=== PATIENT | female | born 1940 | race Caucasian/White ===

== ENCOUNTER 2016-10-09 09:24 | Day surgery (SDC) | payer MEDICARE, OTHER ==
[~2016-10-09] VITALS: Ht 154.9 cm; Wt 68.2 kg
--- NOTE | 2016-10-09 07:27 | PCM.HPANE ---
Patient Data Surgeon Admitting Provider: Attending Provider:Demetri Harrell MD Primary Care Physician:Becky Pettit MD Other Provider:[facility] Reason for Visit Barretts Esophagus Ht/WT & BMI Body Mass Index Allergies Coded Allergies: erythromycin ethylsuccinate (Verified Allergy, Mild, Rash, 10/09/16) metoclopramide (Verified Allergy, Mild, Nausea,Vomiting, 10/09/16) pollen extracts (Verified Allergy, Mild, Rash,Itching,, 10/09/16) Cephalexin Monohydrate (Verified Allergy, Unknown, 10/09/16) Cephalosporins (Unverified Allergy, Unknown, 10/09/16) Contrast Media (Verified Allergy, Unknown, RASH, 10/09/16) Sulfa (Sulfonamide Antibiotics) (Verified Allergy, Unknown, 10/09/16) ciprofloxacin (Verified Allergy, Unknown, 10/09/16) etodolac (Verified Allergy, Unknown, 10/09/16) fosinopril (Verified Allergy, Unknown, 10/09/16) isosorbide (Verified Allergy, Unknown, 10/09/16) sulfamethoxazole (Verified Allergy, Unknown, 10/09/16) trimethoprim (Verified Allergy, Unknown, 10/09/16) Past Anesthesia History Anesthesia History: Denies:: Anesthesia Reactions, Difficult Intubation, Fam Anesthesia Reaction, Fam Malignant Hypertherm, Malignant Hyperthermia Diabetes History Hx Diabetes?: Yes MRSA MRSA: No Medications Reported Medications Cyanocobalamin (Vitamin B12)500 Mcg Bphplc201 Mcg PO DAILY 10/07/16 Levothyroxine (Synthroid)125 Mcg Lskelz304 Mcg PO DAILY Ref 0 10/07/16 Estrogens, Conjugated (Premarin)0.3 Mg Tablet0.3 Mg PO everyotherday 30 Days Ref 0 10/07/16 Omeprazole 40 Mg Capsule.dr40 Mg PO DAILY Ref 0 10/07/16 Nitroglycerin SL 0.4 Mg Tab.subl0.4 Mg SL DIRECTED 10/07/16 Losartan Potassium 25 Mg Quoghj54 Mg PO DAILY 10/07/16 Cyclobenzaprine 10 Mg Hdhhch58 Mg PO HS PRN Spasm Ref 0 10/07/16 Cranberry Extract (Cranberry)250 Mg Popzhju099 Mg PO TID 10/07/16 Multivits-Min/FA/Lycopene/Lut (Centrum Silver Tablet)1 Each Tablet1 Each PO DAILY 10/07/16 Biotin 1 Mg Capsule1 Tab PO DAILY 10/07/16 Insulin Lispro (HumaLOG U100 Insulin Pen)100 Unit/1 Ml Insuln.pen1 Unit SUBQ DIRECTED #1 PENINJ Ref 0 07/07/14 Insulin Glargine (Lantus U100 Insulin Vial)100 Unit/Ml Vial18 Unit SUBQ QPM- INSULIN #1 VIAL Ref 0 07/07/14 Ranitidine HCl (Zantac)150 Mg/10 Ml Xzmw105 Mg PO BID 30 Days Ref 0 07/07/14 Metformin 1,000 Mg Tablet1,000 Mg PO BIDWM 30 Days Ref 0 07/07/14 Carvedilol 25 Mg Ldstfw08 Mg PO BID 30 Days Ref 0 07/07/14 Gabapentin 600 Mg Klqtox724 Mg PO DAILY 30 Days Ref 0 07/07/14 Ezetimibe (Zetia)10 Mg Sqnuec45 Mg PO DAILY 30 Days Ref 0 07/07/14 Aspirin (Aspir 81)81 Mg Tablet.dr81 Mg PO DAILY Ref 0 07/07/14 Discontinued Reported Medications Levothyroxine (Synthroid)137 Mcg Oydiad703 Mcg PO DAILY 30 Days Ref 0 07/07/14 Methocarbamol 750 Mg Gjeitb335 Mg PO QID PRN For Spasm Ref 0 07/07/14 Hydrocod/APAP-Expunged, Do Not Renew! (VICODIN 5/300-Expunged Drug, Do Not Renew )1 Each Tablet1 Each PO 06/16/12 PredniSONE-Expunged Drug, Do Not Renew! 10 Mg Tab40 Mg PO PREMED 06/16/12 [Oscal] No Conflict Clmiy933 Mg PO DAILY 06/16/12 Bimatoprost-Expunged Drug, Do Not Renew! (Lumigan 0.01%-Expunged Drug, Do Not Renew!)45 Drop/2.5 Ml Drops1 Gtt OU DAILY 06/16/12 Isosorbide [place]-Expunged Drug, Do Not Renew! 60 Mg Tab.sr.24h40 Mg PO AM 06/16/12 Vitamin B Complex 100 No.2 (B-100 Complex)100 Mg Tablet.er100 Mg PO DAILY 06/16/12 Ranolazine-Expunged Drug, Do Not Renew! (Ranexa-Expunged Drug, Do Not Renew!) 500 Mg Tber1,000 Mg PO BID 05/27/12 Mu-Vits-Min Th/Lycopene/Lutein (Centrum Silver Tablet)1 Each Tablet1 Each PO DAILY 05/27/12 [Vit D] No Conflict Check1,000 Iu PO DAILY 2 CAPSULES 05/27/12 [Calcium 2 Day] No Conflict Check 05/27/12 Acetaminophen (8 Hour)650 Mg Tablet.er650 Mg PO Q8H PRN Every 8 hours, as needed for Fever 09/16/11 Fish Oil-Expunged Drug, Do Not Renew! Cap1 Tab PO DAILY By mouth, daily 09/09/11 Ranitidine Hcl (Zantac 75)75 Mg Zbabeb19 Mg PO DAILY By mouth, daily 09/09/11 Aspirin-Expunged Drug, Do Not Renew! (Lo-Dose Aspirin-Expunged Drug, Do Not Renew!)81 Mg Tablet.dr81 Mg PO DAILY By mouth, daily 09/09/11 Gabapentin-Expunged Drug, Do Not Renew! (Neurontin-Expunged Drug, Do Not Renew!) 300 Mg Phpdhqb695-886 Mg PO HS PRN 1-2 tablets by mouth, as needed at bedtime 09/09/11 Cyclobenzaprine-Expunged Drug, Do Not Renew! (Flexeril-Expunged Drug, Do Not Renew!)10 Mg Tablet5 Mg PO DAILY By mouth, every eight hours as needed for pain 09/09/11 Levothyroxine Inactive Drug Do Not Use (Synthroid-Expunged Drug, Do Not Renew!) 112 Mcg Wnjvrl715 Mcg PO DAILY By mouth, daily 09/09/11 Estrogens Conj-Expunged Drug, Do Not Renew! (Premarin-Expunged Drug, Do Not Renew!)0.3 Mg Tablet0.3 Mg PO EVERY OTHER DAY By mouth, daily 02/01/10 Metformin-Expunged Drug, Do Not Renew! 1,000 Mg Tablet1,000 Mg PO BID By mouth, daily 02/01/10 Ezetimibe (Zetia)10 Mg Limxba29 Mg PO HS By mouth, daily 02/01/10 Nitroglycerin-Expunged Drug, Do Not Renew! (Nitroglycerin SL-Expunged Drug, Do Not Renew!)0.4 Mg Tab.subl0.4 Mg SL PRN Under the tongue, as needed for chest pain, 5 minutes apart x3, if chest pain remains then call 911 02/01/10 Carvedilol-Expunged Drug, Do Not Renew! 6.25 Mg Autixa21 Mg PO BID By mouth, twice daily 02/01/10 glyBURIDE-Expunged Drug, Do Not Renew! (Diabeta-Expunged Drug, Do Not Renew!) 2.5 Mg Tablet2.5 Mg PO DAILY By mouth, daily 02/01/10 History History of ENT Problems?: Yes HEENT History: Positive for:: Cataracts (OU extracted) Denies:: Difficult Intubation Dysphagia Sinus Problem Hx of Heart Problems?: Yes Cardiovascular History: Positive for:: Hypertension Denies:: Atrial Fibrillation Cardiac Surgery Chest Pain Congestive Heart Failure Edema Heart Murmur Irregular Heartbeat Pacemaker Thrombophlebitis Other Cardiac History: history of CABG, excellent exercise tolerance at this time Hx of Respiratory Problem?: No Respiratory History: Positive for:: Asthma Dyspnea Pneumonia (as a child) Denies:: COPD Chest Surgery Emphysema Hemoptysis Tuberculosis Hx Neurologic Problems?: No Neurological History: Positive for:: 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 Hx Musculoskeletal Problems?: No Musculoskeletal History: Denies:: Back Injury Joint Replacement Musculoskeletal Trauma Hx of Psycho/Social Problems?: No Psycho Social History: Denies:: Anxiety Bipolar Disorder Hx Depression Suicide Attempt Hx Surgeries?: Yes (right kidney, hysterectomy, cabg) Hx Any Other Health Problems?: Yes Other History: Positive for:: Cancer (Kidney R) Hospitalization Thyroid Disease Denies:: Endocrine Disease History Blood Transfusions: Denies:: Blood Transfuse Reaction Blood Transfusions Hx Diabetes: Yes Hx Alcohol Use: NoHx Substance Use: No Smoking Status: Never Smoker Have You Smoked inLast 12 mo: No Stop/Bang Risk Assessment Category Category 1A: Patient has history of documented sleep apnea, and HAS NOT received any narcotic, sedative or anesthesia administration during this stay. Category 1B: Patient has history of documented sleep apnea, and HAS received any narcotic , sedative or anesthesia administration during this stay Category 2: Patient has SUSPECTED Obstructive Sleep Apnea, and HAS received any narcotic , sedative or anesthesia administration during this stay. Category 3: Patient has SUSPECTED Obstructive Sleep Apnea and HAS NOT received narcotic, sedative or anesthesia administration during this stay. Category 4: Outpatient in Procedural Areas with known sleep apnea or who screen positive for High Risk via the STOP/BANG questionnaire. Exam Exam General Appearance: Alert, Oriented X3, Cooperative, No Acute Distress HEENT/AIRWAY: MP 2 Lungs: Clear to Auscultation, Normal Air Movement Heart: Exam Unremarkable, Regular Rate/Rhythm, No Murmurs/Rubs/Gallops Plan Impression Patient chart reviewed, patient interviewed and anesthestic plan with risks, benefits, and alternatives discussed, and informed consent obtained. Anesthetic Plan: MAC Bene/Risks/Altern/Consents: Yes HP Complete Prior to Induction: Yes Ana Ewing MD Oct 09, 2016 07:27
[~2016-10-09 09:24] MED LIST: ASPI-628 PO; BIOT1CAP3 PO; CARV25TA2 PO; CRAN250C2 PO; CYAN500 PO; CYCL10TA9 PO; ESTR0.3T2 PO; EZET10TA PO; GABA600T2 PO; INSU100I18 SUBQ; INSU100V7 SUBQ; LEVO125T2 PO; LOSA25TA21 PO; Lactated Ringer's 1,000 ML IV ONE; METF10002 PO; MULT-1073 PO; NITR0.4T6 SL; OMEP40CA36 PO; [UNRECOGNIZED DRUG - OTHER] PO
[2016-10-09] MEDS ORDERED: fentaNYL-PF 50 mCg/mL 2 mL Inj ONE (09:25)
[2016-10-09] MEDS ORDERED: Propofol 10,000 mCg/mL 20 mL Inj ONE ×2 (09:25)
[2016-10-09 09:51] VITALS: BP 106/51; PULSE 61; RESP 15; O2SAT 97
[2016-10-09] MEDS ORDERED: Lactated Ringer's 1,000 ML IV SCH (10:37)
--- NOTE | 2016-10-09 10:37 | PCM.ANEP1 ---
Post Anesthesia Phase 1 PACU Phase 1 Assessment Vital Signs Vital Signs Date Time Temp Pulse Resp B/P Pulse Ox O2 Delivery O2 Flow Rate FiO2 10/09/16 09:51 36.2 61 15 106/51 97 Room Air Anesthetic Administered: MAC Level of Alertness: Awake, talking GLASER's with Equal Strength: Yes Pain: No Nausea or Vomiting: No Oxygen Delivery: Nasal Cannula Lungs: Clear to Auscultation, Normal Air Movement Ana Ewing MD Oct 09, 2016 10:37
[2016-10-09] MEDS ORDERED: Ondansetron 2 mg/mL 2 mL Inj IVPUSH PRN (10:40)
[2016-10-09] MEDS ORDERED: MetoCLOpramide 5 mg/mL 2 mL Inj IVPUSH PRN (10:40)
--- NOTE | 2016-10-09 10:40 | PCM.ENDEGD ---
EGD Date of Service: Oct 09, 2016 Physician Demetri Harrell MD Pre Procedure Diagnosis: Reflux and history of Mao's Post Procedure Dx & Findings: Questionable Mao's and gastritis Procedure Esophagogastroduodenoscopy PROCEDURE IN DETAIL: The patient was placed in left lateral decubitus position. Bite block was placed. Scope lubricated, placed in posterior pharynx, passed through the cricopharyngeus and esophagus, slowly advanced the entire length of the gastric pouch, pylorus was identified, scope passed through the pylorus and descending portion of duodenum, withdrawn in the antrum, retroflexed upon itself for view of fundus and cardia. Scope was then withdrawn through the oropharynx. Esophagus was entered. The Z line was around 37 cm. It was no obvious mass erosion or ulcer. Mao's esophagus was not clear. We also used narrow banding. There was subtle changes along the Z line without clear salmon- colored mucosa. I think we may be looking at intestinal metaplasia of the cardia. 4 quadrant biopsies obtained. The length at most is probably a centimeter. Stomach was visualized and the entire stomach had redness and positive rugae folds with bilious material. Biopsies obtained. Retroflexion was done. Stomach was easily inflated when deflated using air. Cardia fundus body antrum and pylorus were visualized. The scope further advanced to the distal duodenum which revealed normal villous structures with normal rugae folds. 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 4 quadrant biopsy. Bilious gastritis. Status post biopsy. Recommendation Follow up in GI clinic Repeat EGD in 3 years. We will make our final recommendation when I see her in clinic. Presedation Assessment Risks and Benefits Informed consent was obtained from the patient after all risks and benefits including but not limited to drug reaction, infection, pain, bleeding, perforation, as well as alternatives were discussed. Patient monitoring Continuous pulse oximetry, cardiac monitoring, blood pressure monitoring, IV access, and oxygen at 2L per nasal cannula. Complications There were no periprocedural complications identified. Post Procedure Plan Post Procedure Recommendations 1. Restrict activities today. 2. Resume normal activities in the morning. 3. Resume medications. 4. GERD behavioral modification: - Avoid fatty, acidic, spicy, large meals - Do not lie down after meals - Do not eat or drink anything for at least 2 1/2 hours before going to bed at night - Discontinue tobacco and alcohol - Decrease or avoid caffeine - Avoid chocolate and mints - Decrease weight - Avoid aspirin and non steroidal anti-inflammatory agents (NSAID) such as Aleve, Advil, Mobic, Naproxen, Ibuprofen, etc 5. Add proton pump inhibitor. Take 30 minutes before 1st meal of the day. 6. Patient informed of normal post procedure side effects as bloating, drowsiness, blood streaking in the stool 7. If gastric biopsy reveal H.pylori, continue with appropriate treatment 8. If small bowel biopsy reveals celiac, continue with appropriate treatment 9. Please don't hesitate to call me with any questions Demetri Harrell MD Oct 09, 2016 10:40
[2016-10-09 10:41] VITALS: BP 107/62; PULSE 70; RESP 14; O2SAT 91
[2016-10-09 10:50] VITALS: BP 106/60; PULSE 65; RESP 14; O2SAT 95
[2016-10-09 10:58] VITALS: BP 103/49; PULSE 64; RESP 16; O2SAT 97
--- NOTE | 2016-10-09 11:26 | PCM.ANEP2 ---
Post Anesthesia Evaluation ASA/CMS Post Anesthesia VS in Patient's Normal Range?: Yes Resp Stable; Airway Patent?: Yes CV Function & Hydration Stable: Yes Mental Status Recovered?: Yes Pain control Satisfactory?: Yes N/V Control Satisfactory?: Yes Ana Ewing MD Oct 09, 2016 11:26
--- NOTE | 2016-10-10 14:37 | PATH ---
SURGICAL PATHOLOGY Attending Physician:Demetri Harrell M.D. CASE STATUS: Signed Out PATIENT NAME: ANA KIM PID: [id number] : 1940 DATE COLLECTED:10/09/2016 16:12 SPECIMEN: 1: Gastric, Biopsy 2: Esophagus, Biopsy CLINICAL HISTORY: 1).GASTRIC BIOPSY 2).DISTAL ESOPHAGUS BIOPSY FINAL DIAGNOSIS: 1.GASTRIC BIOPSY: MILD CHRONIC GASTRITIS INVOLVING ANTRAL AND FUNDIC MUCOSA. Negative for evidence of Helicobacter. Negative for intestinal metaplasia. Negative for dysplasia and malignancy. 2.DISTAL ESOPHAGUS BIOPSY: FRAGMENTS OF SQUAMOUS MUCOSA AND RARE SMALL FRAGMENT OF GASTRIC CARDIA-TYPE MUCOSA, NEGATIVE FOR SPECIALIZED METAPLASIA OF ROLAND' S-TYPE ESOPHAGUS. MARKED REACTIVE CHANGES INVOLVING SQUAMOUS EPITHELIUM WITH RARE INTRAEPITHELIAL EOSINOPHILS, ALL CONSISTENT WITH CHANGES OF CHRONIC REFLUX. Negative for dysplasia and malignancy. ICD10 code K29.70 GROSS DESCRIPTION: The specimen is received in two formalin filled containers labeled with the patient's name. 1). The specimen is sublabeled "gastric" and consists of 2 portions of tissue which aggregate to 0.4 x 0.3 x 0.2 CM. The specimen is entirely submitted in cassette 1A. 2). The specimen is sublabeled "distal esophagus" and consists of 2 portions of tissue which aggregate to 0.3 x 0.2 x 0.2 CM. The specimen is entirely submitted in cassette 2A. 10/09/2016 [facility] MICRO DESCRIPTION: See diagnosis. ICD-9 CODES: CPT CODES: 1: 09526 2: 45399 Electronically Signed Out Omid Javed MD Formerly [facility] Pathology [facility] [address], [place] [address] Technical component performed at [facility], [facility] [address], [place], [address]
== END 2016-10-09 23:59 | disposition home or self-care (01) ==
LOC: END 09:24
PROVIDERS: ATTEND Internal Medicine
DX: K21.9 Gastro-esophageal reflux disease without esophagitis (principal); K29.50 Unspecified chronic gastritis without bleeding; I10 Essential (primary) hypertension; I25.10 Atherosclerotic heart disease of native coronary artery without angina pectoris; L90.0 Lichen sclerosus et atrophicus; E11.9 Type 2 diabetes mellitus without complications; J45.909 Unspecified asthma, uncomplicated; I73.9 Peripheral vascular disease, unspecified; Z79.82 Long term (current) use of aspirin; Z79.4 Long term (current) use of insulin; Z79.84 Long term (current) use of oral hypoglycemic drugs; Z86.73 Personal history of transient ischemic attack (TIA), and cerebral infarction without residual deficits; Z79.890 Hormone replacement therapy; Z95.1 Presence of aortocoronary bypass graft; Z85.528 Personal history of other malignant neoplasm of kidney
CPT/HCPCS: 43239; 88305; J2250; J3010; J7120

== ENCOUNTER 2016-10-19 16:35 | Emergency (ER) | payer MEDICARE, OTHER ==
[~2016-10-19] VITALS: Ht 152.4 cm; Wt 68.2 kg
[~2016-10-19 16:35] MED LIST changes: -Lactated Ringer's 1,000 ML IV ONE
[2016-10-19 16:42] VITALS: BP 143/47; PULSE 71; RESP 20; O2SAT 98
--- NOTE | 2016-10-19 16:55 | ED.REPORT ---
HPI- Female Date of Service Oct 19, 2016 ED Provider: Doc,Ed MD History of Present Illness: feels she has a uti. primary care is beckwith , kindrath is nurse obgyn. . Noticed today frequent urination and burning with urination and mild low back pain. Nursing Notes Stated Complaint: FREQUENT, PAINFUL URINATION Chief Complaint: Female Abdominal Pain Nursing Notes Reviewed: Yes Allergies: Coded Allergies: erythromycin ethylsuccinate (Verified Allergy, Mild, Rash, 10/09/16) metoclopramide (Verified Allergy, Mild, Nausea,Vomiting, 10/09/16) pollen extracts (Verified Allergy, Mild, Rash,Itching,, 10/09/16) Cephalexin Monohydrate (Verified Allergy, Unknown, 10/09/16) Cephalosporins (Unverified Allergy, Unknown, 10/09/16) Contrast Media (Verified Allergy, Unknown, RASH, 10/09/16) Sulfa (Sulfonamide Antibiotics) (Verified Allergy, Unknown, 10/09/16) ciprofloxacin (Verified Allergy, Unknown, 10/09/16) etodolac (Verified Allergy, Unknown, 10/09/16) fosinopril (Verified Allergy, Unknown, 10/09/16) isosorbide (Verified Allergy, Unknown, 10/09/16) sulfamethoxazole (Verified Allergy, Unknown, 10/09/16) trimethoprim (Verified Allergy, Unknown, 10/09/16) Scheduled Aspirin (Aspir 81) 81 Mg Tablet.dr 81 MG PO DAILY Biotin (Biotin) 1 Mg Capsule 1 TAB PO DAILY Carvedilol (Carvedilol) 25 Mg Tablet 25 MG PO BID Cranberry Extract (Cranberry) 250 Mg Capsule 250 MG PO TID Cyanocobalamin (Vitamin B12) 500 Mcg Tablet 500 MCG PO DAILY Estrogens, Conjugated (Premarin) 0.3 Mg Tablet 0.3 MG PO everyotherday Ezetimibe (Zetia) 10 Mg Tablet 10 MG PO DAILY Gabapentin (Gabapentin) 600 Mg Tablet 600 MG PO DAILY Insulin Glargine (Lantus U100 Insulin Vial) 100 Unit/Ml Vial 18 UNIT SUBQ QPM- INSULIN Insulin Lispro (HumaLOG U100 Insulin Pen) 100 Unit/1 Ml Insuln.pen 1 UNIT SUBQ DIRECTED Levothyroxine (Synthroid) 125 Mcg Tablet 125 MCG PO DAILY Losartan Potassium (Losartan Potassium) 25 Mg Tablet 25 MG PO DAILY Metformin (Metformin) 1,000 Mg Tablet 1,000 MG PO BIDWM Multivits-Min/FA/Lycopene/Lut (Centrum Silver Tablet) 1 Each Tablet 1 EACH PO DAILY Nitroglycerin SL (Nitroglycerin SL) 0.4 Mg Tab.subl 0.4 MG SL DIRECTED Omeprazole (Omeprazole) 40 Mg Capsule.dr 40 MG PO DAILY Ranitidine HCl (Zantac) 150 Mg/10 Ml Syrp 150 MG PO BID Scheduled PRN Cyclobenzaprine (Cyclobenzaprine) 10 Mg Tablet 10 MG PO HS PRN PRN Spasm General Time Seen by MD: 16:53 Chief Complaint Dysuria, Urinary frequency Hx Obtained From: Patient Sudden in Onset?: No Symptom Duration: Since onset Past Medical History Past Medical History Notes: PCP Dr. Humphreys Past Medical History Ulcers Cataracts Reports: Asthma, Cancer, Diabetes mellitus, GERD, Hypertension Past Surgical History Right kidney removed (cancer) Reports: CABG, Cholecystectomy, Hysterectomy Smoking History Never Smoker Social History Alcohol Use: Denies alcohol use Drug Use: Denies drug use Other Social History: Good social support Occupation lives with no work or school 10/19/2016 Ambulatory Status Independent Review of Systems Basic Review of Systems Respiratory: No shortness of breath, No cough, No wheeze Hematologic: No bleeding, No bruising Psychiatric: Normal thought content Physical Exam Initial Vital Signs Vital Signs (First) Date Time Temp Pulse Resp B/P Pulse Ox O2 Delivery O2 Flow Rate FiO2 10/19/16 16:42 36.4 71 20 143/47 98 Room Air Initial VS: Reviewed, Vital signs normal General/Constitutional: Well-developed, Well-nourished Head / Eyes: Atraumatic, Normocephalic, PERRL ENT: Mucous membranes moist, Conjunctiva normal, No scleral icterus Neck: Supple, Non-tender, Full range of motion Respiratory: Breath sounds normal, Clear to auscultation, No respiratory distress Cardiovascular: Regular rate & rhythm, Heart sounds normal, Intact distal pulses Abdomen / GI: Soft, Non-tender, No guarding, No rebound, No distention Back: No CVA tenderness Lymphatic: No lymphadenopathy Extremities: Vascular intact, Neuro intact, No swelling, No tenderness Skin: Warm, Dry, No cyanosis Neurologic: Alert, Oriented, Nonfocal Psychiatric: Mood/affect normal, Behavior normal, Normal thought content Female Genitourinary: Exam deferred General/Constitutional: Awake, Alert, No acute distress, Well appearing, Well developed, Well hydrated Respiratory / Chest: Atraumatic, Breath sounds NL, Breath sounds = bilat, No respiratory distress Cardiovascular: Heart rate NL, Regular rhythm, Heart sounds NL Interpretation & Diagnostics Lab Results Interpretation Test 10/19/16 17:00 Urine Color Yellow (YELLOW) Urine Appearance Slightly cloudy Urine pH 6.0 (5.0-8.0) Urine Specific [place] 1.015 (1.003-1.035) Urine Protein 30mg/dL (NEG,TRACE) Urine Glucose (UA) Negativemg/dL (NEGATIVE) Urine Ketones Negativemg/dL (NEGATIVE) Urine Occult Blood Large (NEGATIVE) Urine Nitrite Negative (NEGATIVE) Urine Bilirubin Negative (NEGATIVE) Urine Urobilinogen Normalmg/dL (NORMAL) Urine Leukocyte Esterase Large (NEGATIVE) Urine RBC 11-50/hpf (0-2) Urine WBC Packed/hpf (0-5) Urine Epithelial Cells Few/hpf (NONE-MOD) Urine Crystals None seen (NONE SEEN) Urine Bacteria Few/hpf (NONE-FEW) Urine Hyaline Casts None/lpf (NONE) Urine Granular Casts None seen (NONE SEEN) Urine Waxy Casts None seen (NONE SEEN) Urine Red Blood Cell Casts None seen (NONE SEEN) Urine White Blood Cell Casts None seen (NONE SEEN) Urine Mucus None seen (None Seen) Urine Trichomonas None seen (NONE SEEN) Urine Yeast None (NONE SEEN) Urinalysis Comment None Urine Culture Reflexed Indicated Lab Results Interpretation: urine indicates infection Re-Eval/Medical Decision Med Decision/Clinical Course 75 year old female present for evualation of frequency and dsyuria. Denies vomiting. Urine indicates infection. With her multiple allergies will treat with macrobid and follow culture. Exam and urine results are consisent with infection, no sign of urinary retention or vaginal bleeding. Discharge & Departure Impression: Primary Impression: Urinary tract infection Urinary tract infection type: acute cystitis Hematuria presence: with hematuria Qualified Code: N30.01 - Acute cystitis with hematuria Disposition: Home Patient Instructions: Urinary Tract Infection in Women (ED) Additional Instructions: The urine indicates a likely infection. The urine is being cultured. With your many allergies it looks like you can take macrobid. Take 1 in the am and pm for a week. Please follow with primary care for a recheck next week. REturn with fever, vomiting or any other concerns. Referrals: Brian Beckwith DO (PCP) EDSupervising Provider for APC: Papito Patel MD copies to: Brian Beckwith Sue ARNP Oct 19, 2016 16:55
[2016-10-19] MEDS ORDERED: Nitrofurantoin Monohyd-Macrocryst 100 mg Capsule PO ONE (17:10)
[2016-10-19 17:19] VITALS: BP 125/60; PULSE 76; RESP 18; O2SAT 98
[2016-10-19 17:56] LABS: APPEARANCE,URINE SLIGHTLY CLOUDY (CLEAR,HAZY); COLOR,URINE YELLOW (YELLOW); OCCULT BLOOD,URINE LARGE (NEGATIVE); UROBILINOGEN,URINE NORMAL (NORMAL)
== END 2016-10-19 17:20 | disposition home or self-care (01) ==
LOC: SED 16:35
DX: N30.01 Acute cystitis with hematuria (principal); J45.909 Unspecified asthma, uncomplicated; E11.9 Type 2 diabetes mellitus without complications; K21.9 Gastro-esophageal reflux disease without esophagitis; I10 Essential (primary) hypertension; Z90.5 Acquired absence of kidney; Z85.528 Personal history of other malignant neoplasm of kidney; Z95.1 Presence of aortocoronary bypass graft; Z79.82 Long term (current) use of aspirin; Z79.84 Long term (current) use of oral hypoglycemic drugs; Z88.1 Allergy status to other antibiotic agents; Z88.8 Allergy status to other drugs, medicaments and biological substances; Z91.041 Radiographic dye allergy status; Z88.2 Allergy status to sulfonamides; Z88.6 Allergy status to analgesic agent

== ENCOUNTER 2017-02-09 01:50 | Day surgery (SDC) | payer MEDICARE, OTHER ==
[2017-02-09] VITALS (10 sets, daily range): BP systolic 126–153; BP diastolic 49–100; PULSE 62–81; RESP 13–20; O2SAT 91–97
[~2017-02-09] VITALS: Ht 154.9 cm; Wt 67.0 kg
[~2017-02-09 01:50] MED LIST changes: +BIMA2.5D5 AFFECT_EYE; +CLOB15CR3 TOP; +DICL100G8 TOPICAL; -EZET10TA PO; +KEN25CR EXT; +METO50TA3 PO; +NTG3T TD; +OMEP20TA86 PO; -OMEP40CA36 PO; -[UNRECOGNIZED DRUG - OTHER] PO
--- NOTE | 2017-02-09 06:30 | NUR ---
ADMISSION NOTE FEMALE PT ADMITTED FOR HEART CATH. DISCUSSED PLAN OF CARE WITH PT AND FAMILY. SEE ADMIT AND FLOW SHEET
[2017-02-09 07:09] LABS: BASOPHILS % (AUTO) 0.1 % (0-3); EOSINOPHILS % (AUTO) 0 % (0-5); MONOCYTES % (AUTO) 0.2 % (4-12); Mean Corpuscular Hemoglobin 22.7 pg (27.0-35.0); Mean Corpuscular Volume 73.9 fL (81-100); NEUTROPHILS % (AUTO) 92.1 % (40-74); Platelet Count 420 bil/L (150-400)
[2017-02-09] MEDS ORDERED: Heparin 1,000 Units/500 mL NS Premix IV ONE (08:05)
[2017-02-09] MEDS ORDERED: Heparin 10,000 Unit/1,000 mL NS Premix IV ONE (08:07)
[2017-02-09] MEDS ORDERED: Heparin 1,000 Unit/mL 10 mL Inj ONE (08:49)
[2017-02-09] MEDS ORDERED: 0.9% Sodium Chloride 1,000 ML IV PRN (10:01)
[2017-02-09] MEDS ORDERED: 0.9% Sodium Chloride 250 ML IV PRN (10:01)
[2017-02-09] MEDS ORDERED: Ondansetron 2 mg/mL 2 mL Inj IVPUSH PRN (10:05)
[2017-02-09] MEDS ORDERED: HYDROcodone-APAP 5-325 mg Tablet PO PRN (10:05)
--- NOTE | 2017-02-09 10:26 | NUR ---
RETURNED FROM [facility]. SEE FLOW SHEET
[2017-02-09] MEDS ORDERED: ASPI-973 PO (13:21)
[2017-02-09] MEDS ORDERED: METF-496 PO (13:22)
[2017-02-09] MEDS ORDERED: EZET10TA PO (13:25)
[2017-02-09] MEDS ORDERED: MINO100C3 PO (13:25)
[2017-02-09] MEDS ORDERED: metformin PO (13:26)
--- NOTE | 2017-02-09 13:54 | CS94 ---
[address] [address] DIAGNOSTIC CARDIAC CATHETERIZATION PATIENT: ANA KIM : 1940 MR#: [id number] ADMIT: 02/09/2017 JOB ID: [id number] SERVICE DATE: 02/09/2017 PROCEDURES: 1. Selective coronary arteriography. 2. Coronary artery vein bypass graft angiography. 3. Left internal mammary artery bypass graft angiography. 4. Left heart catheterization. 5. Proximal aortography. INDICATIONS: The patient is a 76-year-old female with a history of diffuse calcific coronary artery disease and prior four-vessel coronary bypass graft surgery in 2011, as well as a history of severe peripheral arterial disease, who is brought to the catheterization laboratory for repeat coronary angiography due to functional class III exertional angina. PROCEDURE: Please refer to the flow sheet in the cath laboratory folder for details. I had previously reviewed her CT scan of her abdomen from earlier this year demonstrating severe tubular calcification of the right common femoral artery with potential for easier access to the left common femoral artery. Therefore, my approach was to use the left femoral vessel. Micropuncture needle was utilized, which was up-sized ultimately to a 6-Mauritanian, 55 cm sheath positioned in the proximal descending aorta to avoid catheter interference with expected severe aortic atherosclerosis. This provided excellent access and catheter manipulation as well. [place] coronary angiography was accomplished with standard JL4 and JR4 catheters. Multiple angulated views were obtained. The JR4 catheter was then utilized to successfully cannulate the right coronary bypass graft. Several views of that were obtained. We then also used the right coronary catheter for imaging of the obtuse marginal vein bypass graft. An internal mammary catheter was utilized to visualize the left internal mammary artery bypass graft, and multiple catheters were tried to visualize the remaining diagonal graft. A pigtail catheter was then inserted into the left ventricle and left ventricular end-diastolic pressures were recorded and a pullback performed across the aortic valve. A proximal aortogram then was performed which demonstrated that the diagonal vein graft was patent and that the origin was near the origin of the circumflex graft. It was only with the aid of a 6-Mauritanian guiding catheter were we able to cannulate the ostium of a diagonal vein bypass grafting, get several views. At the end of the procedure, angiogram was performed through the indwelling sheath of the left common femoral artery and demonstrated an adequate arteriotomy site for closure device and a StarClose device was deployed successfully with good hemostasis. The patient tolerated the procedure well although she had a moderate amount of muscular twitchiness thought possibly related to her Ativan premedication. She had no allergic signs at all having been pretreated with prednisone for her IODINE X-RAY allergy. FINDINGS: [place] left coronary circulation: The [place] left coronary arteries show heavy calcification. The initial view demonstrates moderate narrowing of the mid and distal left main. The LAD is occluded at its origin. The left circumflex has moderate narrowing at its origin and then gives rise to a series of prominent obtuse marginal vessels, and extending to the posterolateral branch and the left atrial branch. The major distal obtuse marginal bifurcates distally with significant stenosis at the origin of each limb of the bifurcation. The inferior limb of the bifurcation is the vessel that received the coronary bypass graft and there appears to be competitive flow. The proximal obtuse marginal vessels probably have moderate amount of diffuse narrowing but no major obstructive disease. There is a moderate size ramus vessel seen which has a moderately severe narrowing at its origin, which is difficult to determine with confidence. The distal vessel is probably 1-1.5 mm and free of further obstructive disease. The right coronary artery is heavily calcified. After the takeoff of the conus branch, there is an eccentric, 60% to 70% narrowing in the proximal portion of the right coronary artery. There is moderately severe diffuse intraluminal irregularity and then a takeoff of a large RV marginal branch. Just distal to this, there is a subtotal 95% right coronary lesion in the mid to distal right coronary artery, and then just before the takeoff of the PDA, there is an eccentric, 80% to 90% stenosis. Vein bypass graft angiography: The vein to the distal obtuse marginal vessel is a good caliber vein with no significant areas of narrowing. The insertion site looks normal as well. There is a fairly small territory of flow in the distal OM branch, though it extends out to the lateral apex. The diagonal vein bypass graft is well seen and appears normal with a normal-appearing insertion to the diagonal vessel which fills proximally and it does give off some septal perforators from the proximal LAD, which is filled, though again LAD is then occluded proximally and just distally. The diagonal vessel then extends out and is a moderate size vessel without recurrent obstructive disease. The right coronary bypass graft is anastomosed to a distal posterolateral branch of the right coronary which is isolated from the [place] right coronary artery. It appears normal with a normal- appearing anastomosis. Internal mammary bypass graft angiography: Internal mammary artery is a good-caliber vessel. It is seen to anastomose to the mid to distal LAD. The distal apical LAD is all fairly small and atretic looking. There is some scant retrograde filling of the LAD as well. HEMODYNAMICS: Patient's left ventricular end-diastolic pressure was elevated at around 25 mmHg. She was moderately hypertensive throughout the exam. No aortic valve gradient noted. Proximal aortography: Proximal aortogram demonstrates a normal caliber ascending aorta. The aortic valve is competent and appears tricuspid with no evidence of stenosis. Brachiocephalic vessels are fairly large caliber and show mild atherosclerotic plaquing but no areas of significant obstruction. All three vein bypass grafts are seen to fill on proximal aortography. DISCUSSION: This patient likely is ischemic from her right coronary disease. I have reviewed the films with Dr. Hollins and he will plan on scheduling this patient for repeat procedure in a week or so. I would recommend repeat prednisone loading prior to the procedure in addition to the use of Versed instead of Ativan and I would also suggest access from the left common femoral artery with a micropuncture needle, upgraded to a 55 cm, 6-Mauritanian sheath which provided excellent catheter guidance.
--- NOTE | 2017-02-09 14:00 | NUR ---
DISCHARGE NOTE DISCHARGED TO HOME. INSTRUCTIONS GIVEN. HOME WITH DAUGHTER
== END 2017-02-09 23:59 | disposition home or self-care (01) ==
LOC: SOUO 01:50
PROVIDERS: ATTEND Internal Medicine Cardiovascular Disease
DX: I25.118 Atherosclerotic heart disease of native coronary artery with other forms of angina pectoris (principal); I25.84 Coronary atherosclerosis due to calcified coronary lesion; E11.9 Type 2 diabetes mellitus without complications; I70.211 Atherosclerosis of native arteries of extremities with intermittent claudication, right leg; I10 Essential (primary) hypertension; E78.5 Hyperlipidemia, unspecified; K21.9 Gastro-esophageal reflux disease without esophagitis; E03.9 Hypothyroidism, unspecified; Z79.82 Long term (current) use of aspirin; Z79.4 Long term (current) use of insulin; Z79.84 Long term (current) use of oral hypoglycemic drugs; Z95.1 Presence of aortocoronary bypass graft; Z82.49 Family history of ischemic heart disease and other diseases of the circulatory system
CPT/HCPCS: 36415; 80048; 85025; 93459; 93567; C1760; C1766; C1769; C1887; J1200; J1644; J2060; J7030; Q9967

== ENCOUNTER 2017-02-18 00:18 | Day surgery (SDC) | payer MEDICARE, OTHER ==
[~2017-02-18] VITALS: Ht 154.9 cm; Wt 67.5 kg
[2017-02-18] VITALS (27 sets, daily range): BP systolic 101–144; BP diastolic 41–86; PULSE 68–93; RESP 12–24; O2SAT 89–98
[~2017-02-18 00:18] MED LIST changes: -ASPI-628 PO; +ASPI-973 PO; -CARV25TA2 PO; +EZET10TA PO; -KEN25CR EXT; -METF10002 PO; +MINO100C3 PO; +metformin PO
[2017-02-18] MEDS ORDERED: 0.9% Sodium Chloride 1,000 ML IV ONE (06:45)
[2017-02-18] MEDS ORDERED: Heparin 10,000 Unit/1,000 mL NS Premix IV ONE ×2 (07:45→09:31)
[2017-02-18] MEDS ORDERED: Nitroglycerin 50,000 mcg/250 mL D5W Premix IV ONE (07:45)
[2017-02-18] MEDS ORDERED: Heparin 1,000 Units/500 mL NS Premix IV ONE (07:45)
[2017-02-18] MEDS ORDERED: Heparin 1,000 Unit/mL 10 mL Inj ONE ×2 (07:45→09:17)
[2017-02-18 07:49] LABS: BASOPHILS % (AUTO) 0.1 % (0-3); EOSINOPHILS % (AUTO) 0 % (0-5); MONOCYTES % (AUTO) 0.5 % (4-12); Mean Corpuscular Hemoglobin 22.5 pg (27.0-35.0); Mean Corpuscular Volume 74.8 fL (81-100); NEUTROPHILS % (AUTO) 89.4 % (40-74); Platelet Count 359 bil/L (150-400)
--- NOTE | 2017-02-18 08:44 | NUR ---
ELMO: Pt arrived to [facility] around 0640, pt stated she had chest pain in waiting room at 0630 and took 1 SL nitro with full relief of CP. VSS at 0710, no c/o CP at that time. IV X2 started per IV therapy, shortly after IV's started pt developed jaw and CP, relieved with 1 SL nitro, VSS at that time. BG Glen MD and cathodic protection technician RN aware. Pt taken to cathodic protection technician per cathodic protection technician staff at 0840, report given to ARIANNA Hidalgo in cathodic protection technician.
[2017-02-18] MEDS ORDERED: Atropine 1 mg/10 mL (Code) Syringe ONE (09:02)
[2017-02-18] MEDS ORDERED: fentaNYL-PF 50 mCg/mL 2 mL Inj ONE ×2 (09:02→09:34)
[2017-02-18] MEDS ORDERED: Phenylephrine/NS-PF 100 mCg/mL 5 mL Syringe IVPUSH ONE (09:02)
[2017-02-18] MEDS ORDERED: Verapamil 2.5 mg/mL 2 mL Inj ONE (09:14)
--- NOTE | 2017-02-18 10:29 | DI95 ---
[address] [address] INTERVENTIONAL CARDIAC CATHETERIZATION PATIENT: ANA KIM : 1940 MR#: [id number] ADMIT: 02/18/2017 JOB ID: [id number] PROCEDURE: Attempted PCI of the right coronary artery. INDICATION: Coronary artery disease. Recurrent chest pain. Abnormal stress test. PROCEDURAL DETAILS: The reader and the coders are referred to the procedure log which enumerates all the details. Briefly, it was done via left femoral approach using a long 7-Iraqi sheath. An AL1 guide was used to selectively cannulate the right coronary artery. ANGIOGRAPHIC FINDINGS: The right coronary artery is heavily calcified. It has about a 60% lesion past the 1st bend in its mid segment. There is mild diffuse disease in the rest of the mid segment distally. It has a calcified 80% lesion and right before the crux in the distal RCA there is a heavily calcified 80% lesion. Note is also made of significant tortuosity in the right coronary artery. PERCUTANEOUS INTERVENTION: We started with a run-through wire over a 1.20 sprinter balloon. The run-through wire would not go into the PDA. This was swapped out for a [employer] PT floppy wire. We were able to successfully direct this wire into the PDA. However, the balloon did not track. We got the balloon close enough to the origin of the PDA and my hope was that then I would be able to direct a RotoWire at that time. However, the RotoWire would not cross the calcific lesion in the distal RCA, and I could not direct it into the PDA. Multiple wires were then used. We exchanged out the sprinter balloon for a Finecross catheter in the hope that the Finecross would track through the calcific portion of the distal RCA and allow us to enter the PDA. However, the Finecross would not track either. During this procedure, deep seating of the guide led to ST-segment changes and the patient started complaining of chest pain. We did not have access to any catheters with side holes. Aggressive maneuvers led to prolapse of the guide as well as the wire. At this point, I decided to terminate the procedure. I will be referring her to the [facility]. She will probably need more aggressive intervention and will be better served at a center with access to emergency surgery should there be a complication.
--- NOTE | 2017-02-18 12:36 | NUR ---
Post Cath: Arrived back to [facility] bed 3 at 1010, sheath still in place. VSS on 2L NC, no c/o pain. Sheath pulled around 1200 per chemical lab technician staff. VSS at this time, still on 2L NC, L groin puncture site soft with bio-occlusive dsg C/D/I, L pedal pulse +1. Pt resting flat on back with eyes shut, RR even and unlabored. No c/o pain.
[2017-02-18] MEDS ORDERED: Insulin LISPRO 300 Unit/3 mL Inj SUBQ ONE (13:15)
--- NOTE | 2017-02-18 13:18 | NUR ---
Chest Pain/Jaw pain: C/O jaw pain 6/10 while pt taking pt off of bedpan. EKG obtained with ST changes noted in V leads, nirto SL X2 does given with relief of jaw pain, 0/10. Pt states she is having her "normal" chest pain that is continuous. VSS on 2L NC. aware of c/o jaw pain. L groin with bio-occlusive dsg, L groin soft, palpable +1 pedal pulse. Addendum: 02/18/17 at 1537 by DELMI CESAR RN Nitro patch and MS IV given per MD order.
[2017-02-18] MEDS ORDERED: NITROGLYCERIN TOPICAL ONE ×2 (14:50)
--- NOTE | 2017-02-18 16:29 | NUR ---
Patient assisted of bedrest to bedside commode.Pt wanted to ambulate to bathroom but with chest pain episodes I advised patient to not exert herself and she was amenable to using commode.Patient left on nasal cannula throughout getting out of bed to commode.Left groin intact after getting up.
--- NOTE | 2017-02-18 18:00 | NUR ---
ELMO Care of patient assumed at 1700. No bleeding or hematoma at left groin puncture. Patient sitting up at bedside. Denies chest pain. Daughter at bedside. Transferred to room 2007 by bed at 1800. Report to receiving RN
[2017-02-18] MEDS ORDERED: 0.9% Sodium Chloride 1,000 ML IV PRN (18:17)
[2017-02-18] MEDS ORDERED: 0.9% Sodium Chloride 250 ML IV PRN (18:17)
[2017-02-18] MEDS ORDERED: Atropine 1 mg/10 mL (Code) Syringe IVPUSH PRN (18:20)
[2017-02-18] MEDS ORDERED: Ondansetron 2 mg/mL 2 mL Inj IVPUSH PRN (18:20)
--- NOTE | 2017-02-18 19:08 | NUR ---
[facility] to [facility] Pt arrived to [facility] from [facility] at approximately 1810. Pt oriented to room. VSS. Bilateral pulses palpable. Pt denies chest pain or shortness of breath. Pt states bruises easily. Bruises on bilateral forearms prior to arrival. HOB 30 degrees. Dinner ordered. Care continues.
[2017-02-18] MEDS ORDERED: Insulin GLARgine 100 Unit/mL Syringe SUBQ SCH (21:00)
[2017-02-18] MEDS ORDERED: Glucose 40% Oral Gel 15 Gm Tube PO PRN (22:30)
[2017-02-18] MEDS ORDERED: Dextrose 10% 250 ML IV PRN (22:40)
[2017-02-18] MEDS: Insulin LISPRO 300 Unit/3 mL Inj SUBQ SCH (22:52)
[2017-02-19 03:03] VITALS: BP 128/54; PULSE 69; RESP 16; O2SAT 97
--- NOTE | 2017-02-19 05:25 | NUR ---
Blood Glucose / Tele / VSS HS blood glucose 349, no Insulin or Lantus ordered from Home Med List. Insurance Associate Compounding Pharmacy Technician notified and Humalog and Lantus ordered and was administered. AM blood glucose was 298. No c/o chest pain, Tele SR 60-90s. Post Cardio-Vascular procedure, Left groin site dressing changed to dry gauze and bio-occlusive now CDI, scant amount of sanguineous drainage noted on old dressing. No hematoma or active signs of bleeding. Pedal pulses weak bilaterally, with left pedal pulse slightly weaker than the right. Denies abdomen or back pain. VSS and Afebrile. Pt up ambulating in hallways last night, gait steady.
[2017-02-19 05:42] VITALS: PULSE 91
[2017-02-19] MEDS ORDERED: Pantoprazole 20 mg ER24 Tablet PO SCH (07:30)
[2017-02-19 08:00] VITALS: PULSE 66
[2017-02-19 08:24] VITALS: BP 115/60; PULSE 68; RESP 18; O2SAT 97
[2017-02-19 08:25] LABS: APPEARANCE,URINE HAZY (CLEAR,HAZY); COLOR,URINE YELLOW (YELLOW); OCCULT BLOOD,URINE NEGATIVE (NEGATIVE); UROBILINOGEN,URINE NORMAL (NORMAL)
[2017-02-19] MEDS: Insulin LISPRO 300 Unit/3 mL Inj SUBQ SCH ×2 (09:08→12:44)
[2017-02-19 12:18] VITALS: BP 112/59; PULSE 69; RESP 18; O2SAT 97
--- NOTE | 2017-02-19 13:06 | PCM.DIMED ---
Discharge Instructions Date of Service Feb 19, 2017 Dates of Hospitalization 02/18/2017 Discharge Diagnosis Discharge Diagnosis CAD, recurrent chest pain, attempted PCI of the right coronary artery. Medication Instructions Additional med instructions I increased the dose of your Nitro-Dur patch to 0.4 mg/hr Continue other medications without change Please restart Metformin on 02/20/2017. Diet Discharge Diet: Low fat, Low Sodium, Heart Healthy, Diabetic Activity Discharge Activity: Other (Please see below) Call your provider Call your provider for: Shortness of breath, Bleeding, Chest pain Patient Instructions Patient Instructions No car driving for couple of days; you can have shower starting today; please do not soak in bath tub for one week; no heavy lifting, no more than 7-10 lb for one week, otherwise please be physically active as tolerated; please try to avoid strenuous activity. Follow-up plan BMP in one week Dejuan Peacock PA-C Feb 19, 2017 13:06
[2017-02-19] MEDS ORDERED: NITR1PAT64 TRANSDERM (13:37)
--- NOTE | 2017-02-19 13:43 | PCM.DC.CAR ---
Discharge Summary Date of Service Feb 19, 2017 Date of Hospital Admission 02/18/2017 Date of Discharge: Feb 19, 2017 Providers: Admitting Physician: Primary Care Physician: Brian Beckwith DO Attending Physician: Leonardo Hollins MD Diagnosis at Time of Discharge CAD, recurrent chest pain, attempted PCI of the right coronary artery. Problems: Brief History and Physical: This is 75 y/o lady who has h/o coronary artery disease, s/p CABG x4v done in 2011 who has been having exertional angina and abnormal nuclear study in 09/2016. Hospital Course: During the procedure while directing wires in RCA, deep seating of the guide led to ST-segment changes and the patient started complaining of chest pain. The procedure was terminated. Dr. Hollins, who did procedure, will be referring the patient to . It was noted that the patient would need more aggressive intervention, and she would be better served at a center with access to emergency surgery should there be a complication. On EKG yesterday 02/18/[address] depression in lateral leads. On EKG today ST depressions are basically gone; she has TWI in inferior leads. On telemetry: sinus rhythm in 60s, no dysrhythmia. The patient tells me today that she is doing well. She has been walking and denies having any chest discomfort or [place]. She has nitro-patch currently. She denies pain in left groin area (access site); no bleeding, no hematoma, no bruits with auscultation. I increased the dose of her Nitro patch to 0.4 mg/hr. Medications on discharge are below. The case was discussed and management coordinated with Pin Drafter Operator Dr. Hollins. Physical Exam: General: no acute distress EENT: MMM, sclerae unicteric Neck: supple, no thyromegaly Pulmo: normal breathing sounds bilaterally, no crackles, no wheezing Cardio: RRR, no murmur appreciated, JVP is not elevated Abdomen: nontender with palpation Extremities: no LE edema Neuro: A&Ox3, no gross abnormalities Discharge Medications ([metformin]) 1,000 MG PO BID Aspirin (Aspirin) 81 Mg Tablet 81 MG PO DAILY Bimatoprost (Lumigan) 45 Drop/2.5 Ml Ophsoln 1 DROP AFFECT_EYE HS Biotin (Biotin) 1 Mg Capsule 1 TAB PO BID Clobetasol Propionate/Emoll (Clobetasol Emollient 0.05% Crm) 15 Gm Cream..g. 1 APPL TOP BID Cranberry Extract (Cranberry) 250 Mg Capsule 250 MG PO TID Cyanocobalamin (Vitamin B12) 500 Mcg Tablet 500 MCG PO DAILY Diclofenac Gel (Voltaren Gel) 100 Gm Tube 1 APPLIC TOPICAL QID Estrogens, Conjugated (Premarin) 0.3 Mg Tablet 0.3 MG PO everyotherday Ezetimibe (Zetia) 10 Mg Tablet 10 MG PO DAILY Gabapentin (Gabapentin) 600 Mg Tablet 600-1,200 MG PO QPM Insulin Glargine (Lantus U100 Insulin Vial) 100 Unit/Ml Vial 18 UNIT SUBQ QPM- INSULIN Insulin Lispro (HumaLOG U100 Insulin Pen) 100 Unit/1 Ml Insuln.pen 1 UNIT SUBQ DIRECTED Levothyroxine (Synthroid) 125 Mcg Tablet 125 MCG PO DAILY Losartan Potassium (Losartan Potassium) 25 Mg Tablet 25 MG PO DAILY Metoprolol Tartrate (Metoprolol Tartrate) 50 Mg Tablet 75 MG PO BID Minocycline (Minocycline) 100 Mg Capsule 100 MG PO BID Multivits-Min/FA/Lycopene/Lut (Centrum Silver Tablet) 1 Each Tablet 1 EACH PO DAILY Nitroglycerin 0.4 mg/hr Patch (Nitroglycerin 0.4 mg/hr Patch) 1 Each Patch 0.4 MG TRANSDERM DAILY Remove at night for 10-12 hrs Nitroglycerin SL (Nitroglycerin SL) 0.4 Mg Tab.subl 0.4 MG SL DIRECTED Omeprazole (Omeprazole) 20 Mg Tablet.dr 20 MG PO DAILY As needed Cyclobenzaprine (Cyclobenzaprine) 10 Mg Tablet 5-10 MG PO HS PRN PRN Spasm Additional med instructions I increased the dose of your Nitro-Dur patch to 0.4 mg/hr Continue other medications without change Please restart Metformin on 02/20/2017. Followup Plan Follow-up plan BMP in one week Discharge Activity: Other (Please see below) Patient Instructions No car driving for couple of days; you can have shower starting today; please do not soak in bath tub for one week; no heavy lifting, no more than 7-10 lb for one week, otherwise please be physically active as tolerated; please try to avoid strenuous activity. Dejuan Peacock PA-C Feb 19, 2017 13:43
--- NOTE | 2017-02-19 14:58 | NUR ---
Discharge Note: Discussed discharge instructions and medications with patient and her daughter. Patient is ambulating in room and walked 800ft in halls without report of CP, SOB or dizziness. Tele: Sinus 80-90s. VSS. L groin site is soft and mildly tender to the touch, bruising noted around site without evidence of hematoma. Puncture site was assessed and redressed with a band aid by cardiology PA. Dressing remains C/D/I. Pedal pulses palpable R>L. IVs DCd intact by RN. Patient exited unit via WC with all personal belongings and was transported home by her daughter in a personal vehicle.
== END 2017-02-19 14:45 | disposition home or self-care (01) ==
LOC: SPI 00:18 → PCC 17:55 → SPI 02-19 14:45
PROVIDERS: ATTEND Internal Medicine Cardiovascular Disease
DX: I25.119 Atherosclerotic heart disease of native coronary artery with unspecified angina pectoris (principal); Z53.8 Procedure and treatment not carried out for other reasons; R94.31 Abnormal electrocardiogram [ECG] [EKG]; I25.84 Coronary atherosclerosis due to calcified coronary lesion; Z95.1 Presence of aortocoronary bypass graft; E11.8 Type 2 diabetes mellitus with unspecified complications; Z79.4 Long term (current) use of insulin; Z79.84 Long term (current) use of oral hypoglycemic drugs; Z79.82 Long term (current) use of aspirin
CPT/HCPCS: 36415; 80048; 81000; 85025; 92920; 93005; 99152; 99153; C1725; C1766; C1769; C1887; J0461; J1644; J1815; J2250; J2270; J3010; J7030; Q9967

== ENCOUNTER 2017-05-03 17:02 | Emergency (ER) | payer MEDICARE, OTHER ==
[~2017-05-03] VITALS: Ht 154.9 cm; Wt 69.1 kg
[~2017-05-03 17:02] MED LIST changes: +NITR0.4T38 SL; -NITR0.4T6 SL; +NITR1PAT64 TRANSDERM; -NTG3T TD
[2017-05-03 17:34] VITALS: BP 149/73; PULSE 99; RESP 16; O2SAT 98
--- NOTE | 2017-05-03 19:53 | DRSVH ---
PROCEDURE: US VEINOUS LEG DUPLEX UNILATERAL, LEFT INDICATIONS: L leg pain; eval DVT TECHNIQUE: Real-time imaging, as well as color and pulse Doppler interrogation, were performed of the lower extr emity deep veins from the inguinal ligament to the popliteal fossa. COMPARISON: None. FINDINGS: The deep veins are normally compressible, and free of intraluminal thrombus. Color and pu lse Doppler demonstrate normal phasic intraluminal flow. There is normal augmentation response to di stal compression maneuver. IMPRESSION: No evidence of left lower extremity DVT. Dictated by: Fran Yang M.D. on 05/03/2017 at 19:51 Approved by: Fran Yang M.D. on 05/03/2017 at 19:51
[2017-05-03 20:12] VITALS: BP 121/47; PULSE 95; RESP 19; O2SAT 96
[2017-05-03] MEDS ORDERED: 0.9% Sodium Chloride 1,000 ML IV ONE (20:32)
--- NOTE | 2017-05-03 20:49 | ED.REPORT ---
HPI-General Illness Date of Service May 03, 2017 ED Provider: Nghia Forrester MD The patient is a 76 year old female with a hx of 3 cardiac stents, DM, atrial fibrillation, and HTN on Plavix presenting to the ED with her daughter complaining of aching, left leg pain onset last night. She rates the pain as a 9 /10 severity at its worst and a 5/10 severity currently. Her worst pain occurs when her leg is being touched. She claims that the pain spreads around behind her knee. She says that the pain has progressively been getting worse since her cardiac stents were placed on 04/21/2017. In addition to the leg pain, she claims that she felt back pain while she was in triage. She also admits to taking Nitro today, and 81 mg ASA this morning. Patient denies numbness or tingling in her lower extremities, fever, chills, nasal congestion, nausea, vomiting, dysuria, diaphoresis, SOB, vision changes, or chest pain. Nursing Notes Stated Complaint: POSSIBLE DVT LEFT LEG Chief Complaint: Extremity Trauma Nursing Notes Reviewed: Yes Allergies: Coded Allergies: Sulfa (Sulfonamide Antibiotics) (Verified Allergy, Severe, FEVER, CONFUSION, 05/03/17) IMPROVED WHEN ANTIBIOTIC DISCONTINUED iodine (Verified Allergy, Severe, IODINE CONTRAST - DECREASED HR, NEEDED ATROPINE, 05/03/17) IODINE ON THE SKIN IS OK sulfamethoxazole (Verified Allergy, Severe, FEVER, CONFUSION, 05/03/17) CLEARED UP WHEN PT STOPPED TAKING DRUG trimethoprim (Verified Allergy, Severe, FEVER, CONFUSION, 05/03/17) CLEARED UP WHEN PT STOPPED TAKING DRUG Cephalexin Monohydrate (Verified Allergy, Intermediate, RASH, 05/03/17) isosorbide (Verified Allergy, Intermediate, RASH, 05/03/17) erythromycin ethylsuccinate (Verified Allergy, Mild, Rash, 05/03/17) metoclopramide (Verified Allergy, Mild, Nausea,Vomiting, 05/03/17) pollen extracts (Verified Allergy, Mild, Rash,Itching,, 05/03/17) Contrast Media (Verified Allergy, Unknown, RASH, 05/03/17) etodolac (Verified Allergy, Unknown, 05/03/17) lorazepam (Verified Adverse Reaction, Severe, agitated and restless, ) ciprofloxacin (Verified Adverse Reaction, Intermediate, NAUSEA/VOMITING, ) fosinopril (Verified Adverse Reaction, Intermediate, COUGH, 05/03/17) Scheduled ([metformin]) 1,000 MG PO BID Aspirin (Aspirin) 81 Mg Tablet 81 MG PO DAILY Bimatoprost (Lumigan) 45 Drop/2.5 Ml Ophsoln 1 DROP AFFECT_EYE HS Biotin (Biotin) 1 Mg Capsule 1 TAB PO BID Clobetasol Propionate/Emoll (Clobetasol Emollient 0.05% Crm) 15 Gm Cream..g. 1 APPL TOP BID Cranberry Extract (Cranberry) 250 Mg Capsule 250 MG PO TID Cyanocobalamin (Vitamin B12) 500 Mcg Tablet 500 MCG PO DAILY Diclofenac Gel (Voltaren Gel) 100 Gm Tube 1 APPLIC TOPICAL QID Doxycycline Monohyd (Doxycycline Monohyd) 100 Mg Capsule 100 MG PO BID Estrogens, Conjugated (Premarin) 0.3 Mg Tablet 0.3 MG PO everyotherday Ezetimibe (Zetia) 10 Mg Tablet 10 MG PO DAILY Gabapentin (Gabapentin) 600 Mg Tablet 600-1,200 MG PO QPM Insulin Glargine (Lantus U100 Insulin Vial) 100 Unit/Ml Vial 18 UNIT SUBQ QPM- INSULIN Insulin Lispro (HumaLOG U100 Insulin Pen) 100 Unit/1 Ml Insuln.pen 1 UNIT SUBQ DIRECTED Levothyroxine (Synthroid) 125 Mcg Tablet 125 MCG PO DAILY Losartan Potassium (Losartan Potassium) 25 Mg Tablet 25 MG PO DAILY Metoprolol Tartrate (Metoprolol Tartrate) 50 Mg Tablet 75 MG PO BID Minocycline (Minocycline) 100 Mg Capsule 100 MG PO BID Multivits-Min/FA/Lycopene/Lut (Centrum Silver Tablet) 1 Each Tablet 1 EACH PO DAILY Nitroglycerin 0.4 mg/hr Patch (Nitroglycerin 0.4 mg/hr Patch) 1 Each Patch 0.4 MG TRANSDERM DAILY Remove at night for 10-12 hrs Nitroglycerin SL (Nitroglycerin SL) 0.4 Mg Tab.subl 0.4 MG SL DIRECTED Omeprazole (Omeprazole) 20 Mg Tablet.dr 20 MG PO DAILY Scheduled PRN Cyclobenzaprine (Cyclobenzaprine) 10 Mg Tablet 5-10 MG PO HS PRN PRN Spasm General Time Seen by MD: 17:39 Chief Complaint Other (left leg pain) Hx Obtained From: Patient Arrived By: Walk-in Sudden in Onset?: No Onset Occurred: More than a week ago... (2 weeks) Symptom Duration: Since onset Location: : Leg left Quality: Aching, Painful Radiation: : Does not radiate Severity: Current: Pain level 5 out of 10 Severity: Maximum: Pain level 9 out of 10 Associated with: Denies: Chest pain, Diaphoresis, Fever, Nausea, Shortness of breath, Vision change, Vomiting Pertinent Negative: Pt denies other symptoms Recent Healthcare: Recent doctor visit, Recent hospitalization Similar Sx Previous: No Past Medical History Past Medical History Notes: PCP Dr. Humphreys Past Medical History Ulcers Cataracts 3 cardiac stents 04/21/2017 Reports: Asthma, Cancer, Diabetes mellitus, GERD, Hypertension Past Surgical History Right kidney removed (cancer) 3 cradiac stents 04/21/2017 Reports: CABG, Cholecystectomy, Hysterectomy Smoking History Former Smoker Social History Alcohol Use: Denies alcohol use Drug Use: Denies drug use Other Social History: Good social support Occupation lives with no work or school 10/19/2016 Ambulatory Status Independent Review of Systems Full Review of Systems Constitutional: Denies: Chills, Fever Eyes: Denies: Visual loss bilateral Ears / Nose / Throat: Denies: Nasal congestion Respiratory: Denies: Shortness of breath Cardiovascular: Denies: Chest pain GI: Denies: Nausea, Vomiting Female: Denies: Dysuria Musculoskeletal: Reports: Back pain, Extremity pain (left leg pain) Skin: Denies Diaphoresis Neurologic: Denies: Numbness (or tingling) Complete sys rev & neg: except as marked. Physical Exam Nursing note and vitals reviewed. Constitutional: Well-developed, well-nourished. Not diaphoretic. Head: Normocephalic and atraumatic. Mouth/Throat: Oropharynx is clear and moist. No oropharyngeal exudate. Eyes: EOM are normal. Pupils are equal, round, and reactive to light. Neck: Supple, no tracheal deviation. Cardiovascular: Normal rate, regular rhythm. Equal and intact distal pulses throughout. Pulmonary/Chest: Effort normal and breath sounds normal. No respiratory distress. Abdominal: Soft. No distension. There is no tenderness, rebound, or guarding. Bowel sounds present. Musculoskeletal: Range of motion grossly intact, moving all extremities. 2+ pitting edema to bilateral extremities, left worse than right. Compartments soft in left lower leg and left upper leg. Neurological: AOx3. Grossly nonfocal exam. Strength and sensation intact and equal to bilateral upper and lower extremities. Skin: Warm and dry, no rashes or pallor appreciated. Ecchymosis to the medial aspect of left lower extremity. Left inguinal area 7cm x 4cm hematoma, nontender. Psychiatric: Appropriate mood and affect. Behavior appears normal. Vital Signs Vital Signs Date Time Temp Pulse Resp B/P Pulse Ox O2 Delivery O2 Flow Rate FiO2 05/04/17 00:25 91 16 147/67 97 Room Air 05/03/17 22:57 92 16 142/57 97 Room Air 05/03/17 20:12 36.8 95 19 121/47 96 Room Air 05/03/17 17:34 36.8 99 16 149/73 98 Room Air Interpretation & Diagnostics CT LOWER EXTREMITY: IMPRESSION: 1. Left anterior compartment hematoma. 2. No fracture. 3. Subcutaneous edema versus cellulitis within the left lower extremity. Dictated by: Fran Yang M.D. on 05/03/2017 at 21:16 Lab Results Interpretation Result Diagram: 05/03/17212705/03/172127 Test 05/03/17 21:28 White Blood Count 7.9th/mm3 (3.8-10.1) Red Blood Count 3.34mil/mm3 (3.90-5.20) Hemoglobin 8.1g/dL (12.0-15.6) Hematocrit 26.9% (35.0-46.0) Mean Corpuscular Volume 80.5fL (81-100) Mean Corpuscular Hemoglobin 24.3pg (27.0-35.0) Mean Corpuscular Hemoglobin Concent 30.1% (32.0-37.0) Red Cell Distribution Width 21.3% (12.3-15.4) Platelet Count 468bil/L (150-400) Neutrophils (%) (Auto) 70.4% (40-74) Lymphocytes (%) (Auto) 16.9% (14-46) Monocytes (%) (Auto) 8.2% (4-12) Eosinophils (%) (Auto) 3.3% (0-5) Basophils (%) (Auto) 0.6% (0-3) Sodium Level 137mEq/L (134-144) Potassium Level 4.7mEq/L (3.5-5.2) Chloride Level 102mEq/L (97-108) Carbon Dioxide Level 21mmol/L (18-29) Blood Urea Nitrogen 19mg/dL (8-27) Creatinine 0.56mg/dL (0.57-1.00) Estimat Glomerular Filtration Rate 151mL/min (>59) Glucose Level 176mg/dL (60-99) Calcium Level 8.3mg/dL (8.5-10.1) Magnesium Level 1.5mg/dL (1.6-2.6) Total Bilirubin 0.6mg/dL (0.0-1.2) Aspartate Amino Transf (AST/SGOT) 20U/L (0-50) Alanine Aminotransferase (ALT/SGPT) 13U/L (0-32) Alkaline Phosphatase 101U/L (25-165) Troponin T 0.010ug/L (0.0-0.011) Total Protein 5.9g/dL (6.4-8.4) Albumin 3.0g/dL (3.4-5.0) ECG Interpretation ECG Interpretation: No significant changes from previous Time: 18:24 Interpreted by: ED physician Normal ECG Interpretation: Normal ECG w/ rate of... (89), Normal sinus rhythm US Soft Tissue/Musculoskeletal US VEINOUS LEG DUPLEX UNILATERAL, LEFT: IMPRESSION: No evidence of left lower extremity DVT. Dictated by: Fran Yang M.D. on 05/03/2017 at 19:51 Exam Type: Diagnostic Exam Interpreted by: Radiologist Re-Eval/Medical Decision Med Decision/Clinical Course 76-year-old female presenting to the ED for evaluation of left lower leg pain over the past several weeks. Differential includes DVT, acute venous or arterial occlusion secondary to thrombus or hematoma, pseudoaneurysm, arterial insufficiency, cellulitis, etc. Of note, patient had brief episode of mid back pain while in triage, however this resolved almost immediately and has not returned here in the ED. No chest pain. EKG with no acute ischemic changes, no significant change from previous, troponin within normal limits. The compartments in her left lower extremity are soft, however there is some erythema and ecchymosis. Ultrasound negative for DVT. Arterial ultrasound negative for pseudoaneurysm. CT of the patient's left lower extremity/pelvis demonstrates hematoma previously known, as well as some subcutaneous edema versus cellulitis. Laboratory studies notable for a CMP grossly within normal limits, hemoglobin of 8.1 down from 10.1 2 months ago. I discussed this anemia with the patient - she is not having any lightheadedness or other symptoms related to this at this time and has not noticed any other bleeding. She has no abdominal pain or tenderness, no low back pain, HDS here. New retroperitoneal bleed seems unlikely. I discussed the case briefly with Dr. Winter; please see below. I do think that there is an element of cellulitis present and I will start her on doxycycline given her extensive allergy history. After discussion with the patient, decision made to discharge home with very careful return precautions, PCP follow-up tomorrow for reassessment, repeat labs. Patient agreeable to the plan as stated, no further questions. Time of Eval: 23:02 Re-Evaluation/Progress Note: Patient rechecked. Discussed recent consultation, lab results, and plan to discharge. Patient understands and agrees with plan. All questions addressed at this time. Consultation : Referral / Consult Name: Bora Winter MD Consulted With: Cardiology Call Returned at: 20:58 Power Equipment Mechanics Instructor: Agrees with eval, Agrees with plan Note: Discussed patient condition. Recommended US and if negative to follow up in clinic. Counseled Regarding: Diagnosis, Lab results, Need for follow-up, When/why to return to ED Discharge & Departure Primary Impression: Swelling of left lower extremity Additional Impressions: Cellulitis Site of cellulitis: unspecified site Qualified Code: L03.90 - Cellulitis, unspecified Anemia Anemia type: unspecified type Qualified Code: D64.9 - Anemia, unspecified Disposition: Home Discharge Condition All VS Reviewed: Yes Condition: Improved Patient Instructions: Cellulitis (ED) Additional Instructions: Thank you for allowing us to be a part of your care in the ED today. Your emergency department results, including Lower Extremity CT, and US, are reassuring. I do not think that there is an emergent cause for your symptoms today that would require admission to the hospital. Please schedule a follow up appointment with your primary care physician tomorrow for a repeat blood draw. Your hemoglobin was low, so I would like for you to get a repeat blood draw performed. Please return to the emergency department for any new or worsening symptoms including any nausea, vomiting, abdominal pain, shortness of breath, chest pain , one sided weakness/numbness, fevers, or chills, or if there's anything else of concern to you. Referrals: Brian Beckwith DO (PCP) Payton Attestation Portions of this note were transcribed by Kevin Worthington and Lee Esqueda. I, Dr. Forrester personally performed the history, physical exam and medical decision-making; I reviewed and confirmed the accuracy of the information in the transcribed note. Signed by: Payton Mendenhall, 05/03/2017 Signed by: Payton Lynn, 05/03/17. copies to: Brian Beckwith William B MD May 03, 2017 20:49 May 03, 2017 20:57 KEVIN WORTHINGTON May 03, 2017 23:31
--- NOTE | 2017-05-03 21:20 | DRSVH ---
PROCEDURE: CT LOWER EXTREMITY LEFT WITHOUT CONTRAST INDICATIONS: recent cath, hematoma now w/ LLE swelling, pain TECHNIQUE: Noncontrast 3 mm axial sections acquired of the left upper leg, with coronal and sagittal reformats. For radiation dose reduction, the following was used: automated exposure control, adjustment of mA and/or kV according to patient size. COMPARISON: None. FINDINGS: Image quality: Excellent. Bones: No fracture nor osseous lesion. Soft tissues: There is a high density focus within the anterior compartment of the left proximal thig h, measuring roughly 10.6 cm transverse. There is moderate diffuse subcutaneous fat stranding within the left lower extremity. Visualized bowel loops are grossly unremarkable. Visualized vasculature is normal in caliber. IMPRESSION: 1. Left anterior compartment hematoma. 2. No fracture. 3. Subcutaneous edema versus cellulitis within the left lower extremity. Dictated by: Fran Yang M.D. on 05/03/2017 at 21:16 Approved by: Fran Yang M.D. on 05/03/2017 at 21:18
[2017-05-03 21:33] LABS: BASOPHILS % (AUTO) 0.6 % (0-3); EOSINOPHILS % (AUTO) 3.3 % (0-5); MONOCYTES % (AUTO) 8.2 % (4-12); Mean Corpuscular Hemoglobin 24.3 pg (27.0-35.0); Mean Corpuscular Volume 80.5 fL (81-100); NEUTROPHILS % (AUTO) 70.4 % (40-74); Platelet Count 468 bil/L (150-400)
[2017-05-03 22:08] LABS: Magnesium 1.5 mg/dL (1.6-2.6); TROPONIN T 0.01 ug/L (0.0-0.011)
[2017-05-03 22:57] VITALS: BP 142/57; PULSE 92; RESP 16; O2SAT 97
[2017-05-04] MEDS ORDERED: DOXY100C43 PO (00:07)
[2017-05-04 00:25] VITALS: BP 147/67; PULSE 91; RESP 16; O2SAT 97
--- NOTE | 2017-05-04 08:24 | DRSVH ---
PROCEDURE: US EXTREMITY SONOGRAM LIMITED ([id number]) INDICATIONS: 76 year-old woman with recent catheterization. Evaluate for left groin hematoma; pseudo aneurysm, and obstruction. TECHNIQUE: Real-time scanning was performed of the left groin, with image documentation. COMPARISON: [facility], CT, CT LOWER EXTREMITY LT WO CON, 05/03/2017, 20:56. FINDINGS: There is a large complex, no muscular mass in the left groin measuring 9.5 x 3.3 cm, consis tent with a hematoma. No evidence for AV fistula or pseudoaneurysm. Patient left femoral artery and v ein. IMPRESSION: Large left groin hematoma measuring 9.5 x 3.3 cm. No pseudoaneurysm or AV fistula. No significant discrepancy with the gripper installer radiology preliminary report. Dictated by: Gisel Swain M.D. on 05/04/2017 at 8:18 Approved by: Gisle Swain M.D. on 05/04/2017 at 8:22
== END 2017-05-04 00:26 | disposition home or self-care (01) ==
LOC: SED 17:02
DX: M79.89 Other specified soft tissue disorders (principal); L03.116 Cellulitis of left lower limb; D64.9 Anemia, unspecified; I48.91 Unspecified atrial fibrillation; I10 Essential (primary) hypertension; K21.9 Gastro-esophageal reflux disease without esophagitis; E11.9 Type 2 diabetes mellitus without complications; Z95.5 Presence of coronary angioplasty implant and graft; Z79.84 Long term (current) use of oral hypoglycemic drugs; Z87.891 Personal history of nicotine dependence; Z90.710 Acquired absence of both cervix and uterus; Z79.82 Long term (current) use of aspirin; Z79.4 Long term (current) use of insulin; Z88.1 Allergy status to other antibiotic agents; Z88.2 Allergy status to sulfonamides; Z88.5 Allergy status to narcotic agent; Z88.8 Allergy status to other drugs, medicaments and biological substances; Z91.041 Radiographic dye allergy status
CPT/HCPCS: 36415; 73700; 76882; 80053; 83735; 84484; 85025; 93005; 93970; 96360; 99285; J7030